=== PATIENT | male | born 1945 | race Caucasian/White ===

== ENCOUNTER → 2020-07-05 | Outpatient (CLI) | payer MEDICARE ==
[~2020-07-05] MED LIST: AMLO-211 PO; ASPI81TA45 PO; ATOR40TA78 PO; BRIM5DRO2 EACHEYE; EMPA25TA PO; FISH1CAP PO; GLIP10TA13 PO; GLUC1TAB55 PO; MAGN400T9 PO; METF500T17 PO; MULT-751 PO; NIAC500C8 PO; OMEP-110 PO; VALS1TAB26 PO; VITA0.4T6 PO; [UNRECOGNIZED DRUG - OTHER] PO
[2020-07-05 17:11] LABS: ALBUMIN 3.5 g/dL (3.4-5.0); ANION GAP 7 mmol/L (5-15); CALCIUM 8.9 mg/dL (8.5-10.1); CHLORIDE 100 mmol/L (98-107)
[2020-07-05 17:15] LABS: ALANINE AMINOTRANSFERASE 40 U/L (12-78); ALKALINE PHOSPHATASE 113 U/L (45-117); BILIRUBIN,TOTAL 0.4 mg/dL (0.2-1.0); CREATININE 1.06 mg/dL (0.7-1.3); TOTAL PROTEIN 7.7 g/dL (6.4-8.2)
== END | disposition home or self-care (01) ==
LOC: STAR 15:11
PROVIDERS: ATTEND Otolaryngology
DX: Z01.812 Encounter for preprocedural laboratory examination (principal); Z20.828 Contact with and (suspected) exposure to other viral communicable diseases; I25.2 Old myocardial infarction
CPT/HCPCS: 80053; 87635; 93005